=== PATIENT | male | born 1950 | race Caucasian/White ===

== ENCOUNTER → 2023-05-24 08:15 | Outpatient (REF) | payer MEDICARE, OTHER, SELFPAY | LOC: RCS 08:15 | PROVIDERS: ATTENDING PHYSICIAN Internal Medicine | DX: R07.89 Other chest pain (principal) | CPT/HCPCS: 93017; 93320; 93325; 93350 ==

== ENCOUNTER 2023-10-22 08:09 | Emergency (ER) | payer MEDICARE, OTHER, SELFPAY ==
[2023-10-22 08:10] VITALS: BP 147/81
--- NOTE | 2023-10-22 08:53 | ED.MUSCINJ ---
HPI-Injury
General
Chief Complaint: Fall
Source: patient
Exam Limitations: none
Time Seen by Provider: 10/22/23 08:20
History of Present Illness-Injury
Initial Injury comments:
72-year-old male not anticoagulated presents after trip and fall. He fell forward hitting his forehead on a retaining wall. No loss conscious. No significant headache or neck pain. He noted a laceration to the right eyebrow and drove himself
here for evaluation. Last tetanus unknown. No other complaints
Phy Exam
Physical Exam
Physical Exam:
General: Well-appearing male no acute respiratory distress
HEENT: Normocephalic 2.5 cm laceration oriented in the horizontal direction superior aspect right lateral eyebrow. No significant bleeding. Pupils equal round reactive to light
Neurologic: Alert normal gait conversing appropriately musculoskeletal exam: Cervical spine is nontender
Injury Course
Orders/Labs/Results
Orders:
Orders
10/22/23 08:49
CT Head W/o Iv Contrast Urgent
Comment:
Reason For Exam: fall
Tetanus/Diphth/Acelpertussis [Adacel] 0.5 ml IM .ONCE ONE
MDM/Problems Addressed
Differential Diagnosis Includes:
Fall mechanical in nature with laceration to right lateral eyebrow.
Head injury. Consider contusion versus fracture versus intracranial hemorrhage. CT pending
The laceration was irrigated with saline and all visible foreign bodies were removed. Laceration was then closed in a layered fashion using 5-0 Vicryl for subcutaneous tissues and 5-0 Prolene in a running fashion for the skin.
Tetanus vaccine updated.
*Critical Care Note
Total Time (30-74mins, 75-104mins- exclusive of procedures): Not Applicable
Update Note
Update Note:
CT of head negative for acute intracranial injury. Patient reassured. Wound care instructions were given stable for discharge
ED Attending Note
-
Portions of this chart may have been created with voice recognition software.� Occasional wrong word or��sound alike� substitutions may have occurred due to the inherent limitations of voice recognition software.
Discharge Plan
Departure
Patient Disposition: Home (Routine Discharge)
Date of Disposition: 10/22/23
Time of Disposition: 09:35
Patient with high blood pressure during this ER visit?: No
Discharge Problem:
Laceration
Instructions: Laceration Repair With Stitches (DC)
Referrals:
Breezy Rivas I., DO [Family Provider] -
Activity Restrictions/Additional Instructions:
Apply antibacterial ointment once a day. Have sutures removed in 5 to 7 days. You may take Tylenol if needed for pain. Return if worse otherwise
Interventions
Interventions:
*Risk Screen - Suicide Last Done: 10/22/23 09:23
*General Assessment Last Done: 10/22/23 09:23
*Neglect/Abuse Screening Last Done: 10/22/23 09:23
ED- Fall Risk Assessment Last Done: 10/22/23 09:24
*ED COVID-19 Vaccine History Last Done: 10/22/23 09:23
ED-Musculoskeletal Assessment Last Done: 10/22/23 09:19
ED- Neurological Assessment Last Done: 10/22/23 09:19
ED-Skin Assessment Last Done: 10/22/23 09:19
Discharge Date and Time
Print Language: BELARUSIAN
[2023-10-22] MEDS: ADACEL 0.5 ML IM (09:14)
== END 2023-10-22 10:07 | disposition home or self-care (01) ==
LOC: EMR 08:09
PROVIDERS: EMERGENCY PHYSICIAN Emergency Medicine; FAMILY PHYSICIAN Internal Medicine
DX: S01.121A Laceration with foreign body of right eyelid and periocular area, initial encounter (principal); S09.90XA Unspecified injury of head, initial encounter; W01.198A Fall on same level from slipping, tripping and stumbling with subsequent striking against other object, initial encounter; Z23 Encounter for immunization; Z88.5 Allergy status to narcotic agent
CPT/HCPCS: 99284; 12051; 90471; 70450; 90715

== ENCOUNTER → 2023-11-20 07:30 | Outpatient (REF) | payer MEDICARE, OTHER, SELFPAY | LOC: RAD 07:30 | PROVIDERS: ATTENDING PHYSICIAN Internal Medicine Gastroenterology; FAMILY PHYSICIAN Internal Medicine | DX: I85.00 Esophageal varices without bleeding (principal) | CPT/HCPCS: 76700 ==

== ENCOUNTER → 2024-10-23 07:01 | Outpatient (REF) | payer MEDICARE, OTHER, SELFPAY | LOC: RAD 07:01 | PROVIDERS: ATTENDING PHYSICIAN Internal Medicine Gastroenterology; FAMILY PHYSICIAN Internal Medicine | DX: I85.00 Esophageal varices without bleeding (principal) | CPT/HCPCS: 76700 ==